=== PATIENT | male | born 1995 | race Caucasian/White ===

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

== ENCOUNTER 2017-04-21 02:44 | Emergency (ER) | payer OTHER ==
[2017-04-21 04:23] VITALS: BP 113/76
--- NOTE | 2017-04-24 19:15 | ED ---
Rosalino Gonzalez Abhishek, scribed for Tiara Castellanos MD on 04/21/17 at 0411 . Psychiatric Complaint - HPI Summary HPI Summary: The pt is a 21 y/o male patient presenting to the [facility] with a chief complaint of anxiety. 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 The pt also reports of pain in the neck, numbness, tremors and insomnia. Medication hx reviewed. No PMHx of panic attack. Symptoms alleviated when "hanging with friends." - History Of Current Complaint Time Seen by Provider: 04/21/17 04:03 - Allergies/Home Medications Allergies/Adverse Reactions: Allergies Allergy/AdvReac Type Severity Reaction Status Date / Time No Known Allergies Allergy Verified 04/21/17 04:05 PMH/Surg Hx/FS Hx/Imm Hx Endocrine/Hematology History: Denies: Hx Anticoagulant Therapy Respiratory History: Denies: Hx Asthma Infectious Disease History: Denies: Traveled Outside the US in Last 30 Days - Social History Alcohol Use: None Substance Use Type: Reports: None Smoking Status (MU): Unknown if Ever Smoked Review of Systems All Other Systems Reviewed And Are Negative: Yes Physical Exam Vital Signs On Initial Exam: Initial Vitals Temp Pulse Resp BP Pulse Ox 36.7 C 65 15 113/76 97 04/21/17 04:22 04/21/17 04:22 04/21/17 04:22 04/21/17 04:22 04/21/17 04:22 Diagnostics - Vital Signs Vital Signs Temp Pulse Resp BP Pulse Ox 04/21/17 04:22 36.7 C 65 15 113/76 97 - Laboratory Lab Statement: Any lab studies that have been ordered have been reviewed, and results considered in the medical decision making process. Course/Dx - Course Course Of Treatment: The pt is a 21 y/o male in the [facility] with a chief complaint of anxiety. Upon reevaluation, the pt was calm and asleep in the room. Pt will be dx with anxiety and discharged home with medication. - Differential Dx/Clinical Impression Differential Diagnosis/HQI/PQRI: Positive: Anxiety Provider Diagnosis: Anxiety Discharge - Discharge Plan Condition: Stable Disposition: HOME Prescriptions: ALPRAZolam TAB* [Xanax TAB*] 0.5 mg PO BID PRN #10 tab MDD 2 PRN Reason: Anxiety Patient Education Materials: Anxiety (ED) Referrals: [facility] [Primary Care Provider] - (Follow up with [facility] within 2 to 3 days.) Additional Instructions: RETURN TO EMERGENCY DEPARTMENT FOR ANY NEW OR WORSENING SYMPTOMS The documentation as recorded by the Rosalino melgoza Abhishek accurately reflects the service I personally performed and the decisions made by , Tiara Castellanos MD.
== END 2017-04-21 04:22 | disposition home or self-care (01) ==
LOC: ED 02:44
DX: F41.9 Anxiety disorder, unspecified (principal)
CPT/HCPCS: 99282

== ENCOUNTER 2017-04-26 12:34 | Emergency (ER) | payer OTHER ==
[2017-04-26] MEDS ORDERED: hydrOXYzine HCL TAB* 50 MG PO ONE (13:39)
[2017-04-26 14:09] VITALS: BP 123/68
--- NOTE | 2017-04-30 14:03 | ED ---
Brando Gonzalez Gabriel, scribed for Wenceslao Kim MD on 04/26/17 at 1345 . Psychiatric Complaint - HPI Summary HPI Summary: This patient is a 21 year old M BIBA to [facility] after being sent by the counselor at [facility] for an ongoing panic attack that began a few hours ago. Patient reports palpations and CP. Patient denies SI and medication noncompliance. EMS reports states that patient has been taking Xanax recently with improvement. - History Of Current Complaint Chief Complaint: EDMentalHealth Time Seen by Provider: 04/26/17 13:07 Hx Obtained From: Patient Onset/Duration: Lasting Hours, Still Present Timing: Constant Severity Initially: Moderate Severity Currently: Moderate Character: Anxious Has Suicidal: Denies: Thoughts, With A Plan - Allergies/Home Medications Allergies/Adverse Reactions: Allergies Allergy/AdvReac Type Severity Reaction Status Date / Time No Known Allergies Allergy Verified 04/26/17 13:32 PMH/Surg Hx/FS Hx/Imm Hx Endocrine/Hematology History: Denies: Hx Anticoagulant Therapy Respiratory History: Denies: Hx Asthma GI History: Denies: Hx Gastrointestinal Bleed Infectious Disease History: No Infectious Disease History: Denies: Traveled Outside the [place] in Last 30 Days - Family History Known Family History: Positive: Diabetes - grandfather Negative: Cardiac Disease, Hypertension, Renal Disease, Respiratory Disease, Seizure Disorder - Social History Occupation: Student Lives: Dormitory/Roommates Alcohol Use: None Substance Use Type: Reports: None Smoking Status (MU): Unknown if Ever Smoked Review of Systems Negative: Fever, Chills Negative: Erythema Negative: Sore Throat Positive: Palpitations, Chest Pain Negative: Shortness Of Breath, Cough Negative: Abdominal Pain, Vomiting, Nausea Negative: dysuria, hematuria Negative: Myalgia, Edema Negative: Rash Neurological: Negative - dizziness Positive: Anxious, Other - NEGATIVE SI All Other Systems Reviewed And Are Negative: Yes Physical Exam - Summary Physical Exam Summary: Constitutional: Well-developed, Well-nourished, Alert. (-) Distressed Skin: Warm, Dry HENT: Normocephalic; Atraumatic Eyes: Conjunctiva normal Neck: Musculoskeletal ROM normal neck. (-) JVD, (-) Stridor, (-) Tracheal deviation Cardio: Rhythm regular, rate normal, Heart sounds normal; Intact distal pulses; The pedal pulses are 2+ and symmetric. Radial pulses are 2+ and symmetric. (-) Murmur Pulmonary/Chest wall: Effort normal. (-) Respiratory distress, (-) Wheezes, (-) Rales Abd: Soft, (-) Tenderness, (-) Distension, (-) Guarding, (-) Rebound Musculoskeletal: (-) Edema Lymph: (-) Cervical adenopathy Neuro: Alert, Oriented x3 Psych: Mildly anxious appearing Triage Information Reviewed: Yes Vital Signs On Initial Exam: Initial Vitals Temp Pulse Resp BP Pulse Ox 98.6 F 82 17 119/60 99 04/26/17 13:30 04/26/17 13:30 04/26/17 13:30 04/26/17 13:30 04/26/17 13:30 Vital Signs Reviewed: Yes Diagnostics - Vital Signs Vital Signs Temp Pulse Resp BP Pulse Ox 04/26/17 13:30 98.6 F 82 17 119/60 99 - Laboratory Lab Statement: Any lab studies that have been ordered have been reviewed, and results considered in the medical decision making process. Re-Evaluation - Re-Evaluation First Eval Re-Evaluation Time: 14:02 Change: Improved Comment: The patient doesnt believe he needs hospitalization and his anxiety is improving. Course/Dx - Course Assessment/Plan: This patient is a 21 year old M BIBA to [facility] after being sent by the counselor at [facility] for an ongoing panic attack that began a few hours ago. Patient reports palpations and CP. Patient denies SI and medication noncompliance. EMS reports states that patient has been taking Xanax recently with improvement. The patient doesnt believe he needs hospitalization and his anxiety is improving. He will follow up with his counselor tomorrow and his parents are coming in from out of town for support. I discussed [facility] with him, which I did not believe was need and he agrees. In the ED course the patient was given Atarax. Dx panic attack. Patient will be discharged with prescription for atarax and follow up from [facility]. The patient is agreeable with this plan. - Differential Dx/Clinical Impression Provider Diagnosis: Panic attack Discharge - Sign-Out/Discharge Documenting (check all that apply): Discharge - Discharge Plan Condition: Stable Disposition: HOME Prescriptions: hydrOXYzine HCL TAB* [Atarax 25 MG TAB*] 25 mg PO TID PRN #21 tab PRN Reason: Anxiety/Insomnia Patient Education Materials: Panic Attack (ED) [facility] 1 Day Additional Instructions: RETURN TO THE EMERGENCY DEPARTMENT FOR CHANGING OR WORSENING SYMPTOMS. The documentation as recorded by the Brando melgoza Gabriel accurately reflects the service I personally performed and the decisions made by , Wenceslao Kim MD.
== END 2017-04-26 14:10 | disposition home or self-care (01) ==
LOC: ED 12:34
DX: F41.0 Panic disorder [episodic paroxysmal anxiety] (principal); R00.2 Palpitations; R07.89 Other chest pain
CPT/HCPCS: 99282; A9270-GY

== ENCOUNTER 2018-09-08 19:42 | Emergency (ER) | payer OTHER ==
[2018-09-08 20:01] VITALS: BP 118/66
--- NOTE | 2018-09-08 20:40 | UC ---
General HPI - HPI Summary HPI Summary: 23 yo WM presents for CXR to make sure he does not have a recurrent PTX. States he has a h/o traumatic PTX in the past while playing soccer and bumping against another player 2 yras ago but today he felt panicked because he felt chest discomfort while coming down from a lay-up shot during basketball. Currently denies SOB or chest discomfort - History of Current Complaint Chief Complaint: UCRespiratory Stated Complaint: SOB Time Seen by Provider: 09/08/18 19:52 Hx Obtained From: Patient Onset/Duration: Sudden Onset Current Severity: None Pain Intensity: 0 - Allergy/Home Medications Allergies/Adverse Reactions: Allergies Allergy/AdvReac Type Severity Reaction Status Date / Time shrimp Allergy Severe ITCHY Verified 09/08/18 20:01 THROAT BLACK ZAFAR Allergy Severe ITCHY Uncoded 09/08/18 20:01 THROAT Home Medications: Home Medications NK [No Home Medications Reported] 09/08/18 [History Confirmed 09/08/18] PMH/Surg Hx/FS Hx/Imm Hx - Additional Past Medical History Additional PMH: PTX Previously Healthy: Yes Other History Of: Negative For: Anticoagulant Therapy - Surgical History Surgical History: Yes Surgery Procedure, Year, and Place: CYST REMOVAL - Family History Known Family History: Positive: Diabetes - grandfather Negative: Cardiac Disease, Hypertension, Renal Disease, Respiratory Disease, Seizure Disorder - Social History Alcohol Use: Occasionally Substance Use Type: None Smoking Status (MU): Never Smoked Tobacco Review of Systems All Other Systems Reviewed And Are Negative: Yes Physical Exam - Summary Physical Exam Summary: Vital Signs Reviewed: Yes Eye Exam: Normal Eyes: Positive: Conjunctiva Clear ENT: Positive: Normal ENT inspection Neck: Positive: Supple Respiratory Exam: Normal Respiratory: Positive: Lungs clear, BS equal B/L, NO decrease in BS Cardiovascular Exam: Normal Cardiovascular: Positive: RRR Abdomen Description: Positive: Nontender Musculoskeletal Exam: Normal Neurological Exam: Normal Psychological Exam: Normal Skin Exam: Normal Vital Signs: Initial Vital Signs Temp 36.6 C 09/08/18 19:56 Pulse 93 09/08/18 19:56 Resp 20 09/08/18 19:56 BP 118/66 09/08/18 19:56 Pulse Ox 100 09/08/18 19:56 Course/Dx - Course Course Of Treatment: no signs of PTX - Diagnoses Provider Diagnosis: Well adult Discharge - Sign-Out/Discharge Documenting (check all that apply): Patient Departure All imaging exams completed and their final reports reviewed: Yes - Discharge Plan Condition: Stable Disposition: HOME Patient Education Materials: Traumatic Pneumothorax (ED) Additional Instructions: You do not have a collapsed lung. Please follow up with your PCP if further concerns - Billing Disposition and Condition Condition: STABLE Disposition: Home
== END 2018-09-08 20:36 | disposition home or self-care (01) ==
LOC: UCEAST 19:42
DX: R07.9 Chest pain, unspecified (principal)
CPT/HCPCS: 71046; 99211; G0463

== ENCOUNTER 2018-11-29 12:51 | Emergency (ER) | payer OTHER ==
[2018-11-29 14:00] VITALS: BP 113/76
--- NOTE | 2018-11-29 14:45 | UC ---
Knee Pain HPI - HPI Summary HPI Summary: Patient is a 23-year-old male presenting with left anterior knee pain since Tuesday. Says the pain began after he ran a short distance to catch the bus. 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 Denies radiating pain. He states it is worse with knee flexion and physical activity. Denies pain at rest. denies swelling and bruising. Denies numbness, tingling, weakness, and instability. States he has had recurrent pain in this knee. He had physical therapy for pain in that knee in 2014 but does not remember a specific diagnosis. Denies any recent trauma or injury. - History of Current Complaint Chief Complaint: UCLowerExtremity Stated Complaint: L KNEE INJ Hx Obtained From: Patient Onset/Duration: Sudden Onset Severity Currently: Mild Pain Intensity: 4 Pain Scale Used: 0-10 Numeric - Allergies/Home Medications Allergies/Adverse Reactions: Allergies Allergy/AdvReac Type Severity Reaction Status Date / Time shrimp Allergy Severe ITCHY Verified 11/29/18 13:54 THROAT BLACK ZAFAR Allergy Severe ITCHY Uncoded 11/29/18 13:54 THROAT PMH/Surg Hx/FS Hx/Imm Hx Previously Healthy: Yes Other History Of: Negative For: Anticoagulant Therapy - Surgical History Surgical History: Yes Surgery Procedure, Year, and Place: CYST REMOVAL - Family History Known Family History: Positive: Diabetes - grandfather Negative: Cardiac Disease, Hypertension, Renal Disease, Respiratory Disease, Seizure Disorder - Social History Alcohol Use: Occasionally Substance Use Type: None Smoking Status (MU): Never Smoked Tobacco Review of Systems All Other Systems Reviewed And Are Negative: No Constitutional: Positive: Negative Respiratory: Positive: Negative Cardiovascular: Positive: Negative Musculoskeletal: Positive: Arthralgia, Myalgia. Negative: Decreased ROM, Edema Neurological: Negative: Weakness, Paresthesia, Numbness Physical Exam Triage Information Reviewed: Yes Appearance: Well-Appearing, No Pain Distress, Well-Nourished Vital Signs: Initial Vital Signs Temp 98.9 F 11/29/18 13:55 Pulse 64 11/29/18 13:55 Resp 18 11/29/18 13:55 BP 113/76 11/29/18 13:55 Pulse Ox 100 11/29/18 13:55 Vital Signs Reviewed: Yes Eyes: Positive: Conjunctiva Clear ENT: Positive: Hearing grossly normal Neck: Positive: Supple Respiratory: Positive: No respiratory distress Cardiovascular: Positive: Pulses Normal - Normal ankle and pedal pulses. Musculoskeletal: Positive: Strength Intact, ROM Intact, No Edema, Other: - Mild anterior knee discomfort with left knee flexion against resistance. No tenderness to palpation of the left knee. Neurological Exam: Other - Sensation grossly intact Neurological: Positive: Alert Psychological: Positive: Age Appropriate Behavior Skin Exam: Normal, Other - no erythema or ecchymosis Diagnostics - Radiology L knee Radiology Interpretation Completed By: Radiologist Summary of Radiographic Findings: IMPRESSION: NO ACUTE OSSEOUS INJURY. IF SYMPTOMS PERSIST, RECOMMEND REPEAT IMAGING. Knee Pain Course/Dx - Course Course Of Treatment: Discussed negative knee x-ray with patient. Directed to continuous symptomatic treatment and follow up with orthopedics or sports medicine for further evaluation if pain persists. He voiced understanding and agreed with the treatment plan. - Differential Dx/Diagnosis Provider Diagnosis: Left anterior knee pain Discharge ED - Sign-Out/Discharge Documenting (check all that apply): Patient Departure All imaging exams completed and their final reports reviewed: Yes - Discharge Plan Condition: Stable Disposition: HOME Patient Education Materials: Knee Pain (ED) Referrals: [facility] [Outside] - If Needed Mila Pope MD [Medical Doctor] - If Needed Additional Instructions: As discussed, the xrays of the knee did not show any fractures. Rest and use ice, elevation, and compression with an ankita wrap to help relieve pain. You may also use over the counter pain medications as directed for relief of pain. Refrain from strenuous physical activity until pain has resolved. If pain does not resolve within a couple weeks, follow up with sports medicine or orthopedics listed below for further evaluation. Return or go to the emergency room if pain worsens, the foot becomes cold and numb, or you are not able to bear weight. - Billing Disposition and Condition Condition: STABLE Disposition: Home
== END 2018-11-29 15:30 | disposition home or self-care (01) ==
LOC: UCEAST 12:51
DX: M25.562 Pain in left knee (principal); Z91.013 Allergy to seafood; Z91.018 Allergy to other foods
CPT/HCPCS: 99212; G0463

== ENCOUNTER 2018-12-24 10:24 | Emergency (ER) | payer OTHER ==
[2018-12-24 10:51] VITALS: BP 122/77
[2018-12-24] MEDS ORDERED: Ibuprofen TAB* 600 MG PO ONE (11:30)
--- NOTE | 2018-12-24 11:31 | UC ---
Throat Pain/Nasal Salvador HPI - HPI Summary HPI Summary: Pt c/o sore throat, headache and fever since yesterday. - History of Current Complaint Chief Complaint: UCGeneralIllness Stated Complaint: THROAT PAIN Time Seen by Provider: 12/24/18 11:11 Hx Obtained From: Patient Onset/Duration: Sudden Onset, Lasting Days - 1 Severity: Severe Pain Intensity: 7 - Allergies/Home Medications Allergies/Adverse Reactions: Allergies Allergy/AdvReac Type Severity Reaction Status Date / Time shrimp Allergy Severe ITCHY Verified 12/24/18 10:47 THROAT BLACK ZAFAR Allergy Severe ITCHY Uncoded 12/24/18 10:47 THROAT PMH/Surg Hx/FS Hx/Imm Hx Previously Healthy: Yes Other History Of: Negative For: Anticoagulant Therapy - Surgical History Surgical History: Yes Surgery Procedure, Year, and Place: CYST REMOVAL - Family History Known Family History: Positive: Diabetes - grandfather Negative: Cardiac Disease, Hypertension, Renal Disease, Respiratory Disease, Seizure Disorder - Social History Alcohol Use: Occasionally Substance Use Type: None Smoking Status (MU): Never Smoked Tobacco Review of Systems All Other Systems Reviewed And Are Negative: Yes ENT: Positive: Sore Throat Musculoskeletal: Positive: Myalgia Neurological: Positive: Headache Is Patient Immunocompromised?: No Physical Exam Triage Information Reviewed: Yes Appearance: Well-Nourished, Ill-Appearing, Pain Distress Vital Signs: Initial Vital Signs Temp 100.4 F 12/24/18 10:47 Pulse 104 12/24/18 10:47 Resp 16 12/24/18 10:47 BP 122/77 12/24/18 10:47 Pulse Ox 97 12/24/18 10:47 Vital Signs Reviewed: Yes Eye Exam: Normal ENT: Positive: Pharyngeal erythema, Nasal congestion, TM bulging, TM red, Tonsillar swelling, Tonsillar exudate Dental Exam: Normal Neck: Positive: Enlarged Nodes @ - bilateral vervical Cardiovascular: Positive: No Murmur, Pulses Normal, Tachycardia Abdominal Exam: Normal Bowel Sounds: Positive: Present Musculoskeletal Exam: Normal Neurological Exam: Normal Psychological Exam: Normal Skin Exam: Normal Throat Pain/Nasal Course/Dx - Course Course Of Treatment: hx obtained, exam performed ,meds reviewed, rapid flu and strep obtained. - Differential Dx/Diagnosis Differential Diagnosis/HQI/PQRI: Influenza, Otitis Media, Pharyngitis, Sinusitis , URI Provider Diagnosis: Fever, Pharyngitis, Sinusitis Discharge ED - Sign-Out/Discharge Documenting (check all that apply): Patient Departure All imaging exams completed and their final reports reviewed: No Studies - Discharge Plan Condition: Stable Disposition: HOME Patient Education Materials: Sinusitis (ED) Referrals: No Primary Care Phys,NOPCP [Primary Care Provider] - Additional Instructions: 1. Take the medication as prescribed. 2. REst 3. FLuids 4. Ibuprofen 400 mg every 4 hours for fever 5. Follow up with provider if not improving in 3-4 days - Billing Disposition and Condition Condition: STABLE Disposition: Home
[2018-12-24 11:48] LABS: Influenza A Molecular NEGATIVE (Negative); Influenza B Molecular NEGATIVE (Negative)
== END 2018-12-24 12:00 | disposition home or self-care (01) ==
LOC: UCEAST 10:24
DX: R50.9 Fever, unspecified (principal); J02.9 Acute pharyngitis, unspecified; J32.9 Chronic sinusitis, unspecified; Z91.013 Allergy to seafood; Z91.018 Allergy to other foods
CPT/HCPCS: 87651; 99212; A9270-GY; G0463